=== PATIENT | male | born 1970 | race African-American/Black ===

== ENCOUNTER → 2016-05-06 | Emergency (ER) | payer OTHER ==
[~2016-05-06] VITALS: Ht 152.4 cm; Wt 85.5 kg
[~2016-05-06] MED LIST: DIAZEPAM 5 MG TAB PO ONE; HYDR-902 PO; HYDROCODONE/APAP (5/325) TAB PO ONE; MECL12.574 PO; MED4DP PO; ORPH100T PO; TRAM50TA2 PO
[2016-05-06 16:52] VITALS: Ht 152.4 cm; Wt 85.5 kg
--- NOTE | 2016-05-06 19:00 | RADRPT ---
PROCEDURE: XR Cervical Spine. CLINICAL INDICATION: Neck pain TECHNIQUE: Three views of the cervical spine were performed. COMPARISON: None. FINDINGS: The vertebral bodies are normal in mineralization, architecture and alignment. No fracture or osseou s lesion is identified. No subluxation is demonstrated. There is moderate C5-6 and mild C4-5 and C 6-7 degenerative disk disease. This is associated with space narrowing, endplate sclerosis and spond ylosis. The uncinate joints are unremarkable. The facet joints are unremarkable. The soft tissues are normal. IMPRESSION: Moderate C5-6 and mild C4-5 and C6-7 degenerative disk disease. RPTAT: HGDB .Sebas Joel MD, Date Time Electronically viewed and signed by .Sebas Joel MD, on 05/06/2016 18:59 .B/
--- NOTE | 2016-05-06 19:02 | RADRPT ---
PROCEDURE: CR right shoulder CLINICAL INDICATION: Shoulder pain TECHNIQUE: 3 views performed COMPARISON: No comparison available. FINDINGS: There is normal mineralization, architecture and alignment.No fracture or osseous lesion is identifi ed.The glenohumeral and acromioclavicular joints are unremarkable. The soft tissues are unremarkable . IMPRESSION: Unremarkable examination. RPTAT: HGDB .Sebas Joel MD, MD Date Time Electronically viewed and signed by .Sebas Joel MD, MD on 05/06/2016 19:02 .B/
--- NOTE | 2016-05-06 19:12 | ERD ---
ER Documentation Chief Complaint Date/Time DATE: 05/06/16 TIME: 19:09 Chief Complaint NECK X 1 WEEK HPI This is a 46-year-old male presents to the ER with back pain for the last week. Patient states that neck pain is sharp in nature it radiates down the right side of his neck and into the shoulder. Patient however has full range of motion of his shoulders. He does not have any fevers or chills. He does not have any trauma. Patient to exercise a lot in the past and has hurt himself exercising patient has been trying Flexeril and Advil however it has not worked. He denies any numbness or tingling to his upper extremities. He denies any weakness. He denies any headaches. ROS 12 point review of systems was done, all negative except per HPI. Medications Home Meds Active Scripts Orphenadrine Citrate (Norflex) 100 Mg Tablet.sa, 100 MG PO BID for 5 Days, TAB.SA Prov:NESSBEATRIZ KEITH C 05/06/16 Methylprednisolone* (Medrol* DOSE PACK) 4 Mg/Dose-Pack Tab.ds.pk, 4 MG PO . DIRECTED for 6 Days, PACKET Prov:BEATRIZ ARZOLA C 05/06/16 Tramadol HCl (Tramadol HCl) 50 Mg Tablet, 50 MG PO Q4 Y for PAIN, #20 TAB Prov:NESSBEATRIZ C 05/06/16 Hydrocodone/Acetaminophen ([place] 10-325 Tablet) 1 Each Tablet, 1 TAB PO Q6H Y for PAIN, #20 TAB Prov:LEKKOS,APOSTOLOS A. DO 12/28/15 Meclizine Hcl* (Antivert*) 12.5 Mg Tab, 25 MG PO Q6H Y for DIZZINESS, #20 TAB Prov:LEKKOS,APOSTOLOS A. DO 12/28/15 Allergies Allergies: Coded Allergies: No Known Allergy (Unverified , 12/28/15) PMhx/Soc History of Surgery: Yes (L hand surgery) Anesthesia Reaction: No Hx Neurological Disorder: Yes (Migraine MCLEAN) Hx Respiratory Disorders: No Hx Cardiac Disorders: No Hx Psychiatric Problems: No Hx Miscellaneous Medical Probl: Yes (Possible muscle tear in L chest.) Hx Alcohol Use: No Hx Substance Use: No Hx Tobacco Use: No Physical Exam Vitals Vital Signs Date Time Temp Pulse Resp B/P Pulse Ox O2 Delivery O2 Flow Rate FiO2 05/06/16 16:52 98.1 78 18 127/61 98 Physical Exam GENERAL: The patient is well developed and appropriate for usual state of health , in no apparent distress. HEENT: Atraumatic. Conjunctivae are pink. Pupils equal, round, and reactive to light. Extraocular muscles are grossly intact. Bilateral tympanic membranes are clear with no evidence of erythema, bulging or perforation. No sinus tenderness. NECK: C-spine is soft and supple. There is no cervical lymphadenopathy. Patient is tender to palpation along C4 through C7. Tenths trapezius muscles. CHEST: Clear to auscultation bilaterally. There are no rales, wheezes or rhonchi. HEART: Regular rate and rhythm. No murmurs, clicks, rubs or gallops. NEURO: Alert and oriented. SKIN: There is no apparent rash or petechia. The skin is warm and dry. Results 24 hrs Current Medications Medications (Trade) Dose Ordered Sig/Oniel Route PRN Reason Start Time Stop Time Status Last Admin Dose Admin Diazepam (Valium) 5 mg ONCE ONCE PO 05/06/16 18:00 05/06/16 18:01 DC 05/06/16 17:47 Procedures/MDM This is a 46-year-old male presents to the ER with neck pain for the last week. Patient did have degenerative disc disease from C4 through C7. At this time I do not believe patient has meningitis as he does not have any neck stiffness fever or chills. I doubt abscess as he is afebrile. Patient will be sent home with tramadol, Norflex, prednisone. He is to follow-up with his primary care doctor within 1-2 days or return to ER sooner if symptoms worsen. I advised that he follow-up with an orthopedic doctor. Medical decision making shared with the patient understands and agrees with plan Departure Diagnosis: Primary Impression: Degenerative disc disease Condition: Stable Patient Instructions: Back And Neck Pain, General Additional Instructions: Call your primary care doctor TOMORROW for an appointment during the next 1-2 days.See the doctor sooner or return here if your condition worsens before your appointment time. BEATRIZ ARZOLA May 06, 2016 19:12
[2016-05-06 19:20] VITALS: BP 149/70; PULSE 70; RESP 18; TEMP 98.2
== END | disposition home or self-care (01) ==
LOC: FTE 16:51
DX: M50.90 Cervical disc disorder, unspecified, unspecified cervical region (principal)
CPT/HCPCS: 72040; 73030; Z7502; Z7610

== ENCOUNTER 2016-07-15 19:39 | Emergency (ER) | payer OTHER ==
[~2016-07-15] VITALS: Ht 185.4 cm; Wt 88.5 kg
[~2016-07-15 19:39] MED LIST changes: -DIAZEPAM 5 MG TAB PO ONE; -HYDROCODONE/APAP (5/325) TAB PO ONE
[2016-07-15 20:26] VITALS: Ht 185.4 cm; Wt 88.5 kg
[2016-07-15] MEDS ORDERED: ACET1TAB40 PO (21:36)
[2016-07-15] MEDS ORDERED: AMO500 PO (21:36)
--- NOTE | 2016-07-15 21:48 | ERD ---
ER Documentation Chief Complaint Date/Time DATE: 07/15/16 TIME: 21:44 Chief Complaint RIGHT SIDED TOOTHACHE UNRELIEVED WITH PAIN MEDICATION HPI This is a 46-year-old male presenting to the emergency department complaining of right lower tooth pain for the past day. Patient rates the pain 10 out of 10 , described as constant achy denies any radiation. He denies any fevers. Patient states that the pain is located where that he has a missing tooth. Patient states that he took tramadol and ibuprofen without any relief. ROS All systems reviewed and are negative except as per history of present illness. Medications Home Meds Active Scripts Acetaminophen with Codeine (Acetaminophen-Cod #3 Tablet) 1 Each Tablet, 1 TAB PO Q6H Y for PAIN, #20 TAB Prov:SHARYN DOMINGO-C 07/15/16 Amoxicillin* (Amoxicillin*) 500 Mg Cap, 500 MG PO BID for 10 Days, CAP Prov:SHARYN DOMINGO-C 07/15/16 Orphenadrine Citrate (Norflex) 100 Mg Tablet.sa, 100 MG PO BID for 5 Days, TAB.SA Prov:NESS,BEATRIZ C 05/06/16 Methylprednisolone* (Medrol* DOSE PACK) 4 Mg/Dose-Pack Tab.ds.pk, 4 MG PO . DIRECTED for 6 Days, PACKET Prov:NESSLARRYBEATRIZ C 05/06/16 Tramadol HCl (Tramadol HCl) 50 Mg Tablet, 50 MG PO Q4 Y for PAIN, #20 TAB Prov:NESSBEATRIZ C 05/06/16 Hydrocodone/Acetaminophen ([place] 10-325 Tablet) 1 Each Tablet, 1 TAB PO Q6H Y for PAIN, #20 TAB Prov:LEKKOS,APOSTOLOS A. DO 12/28/15 Meclizine Hcl* (Antivert*) 12.5 Mg Tab, 25 MG PO Q6H Y for DIZZINESS, #20 TAB Prov:LEKKOS,APOSTOLOS A. DO 12/28/15 Allergies Allergies: Coded Allergies: No Known Allergy (Unverified , 12/28/15) PMhx/Soc History of Surgery: Yes (L hand surgery) Anesthesia Reaction: No Hx Neurological Disorder: Yes (Migraine MCLEAN) Hx Respiratory Disorders: No Hx Cardiac Disorders: No Hx Psychiatric Problems: No Hx Miscellaneous Medical Probl: Yes (Possible muscle tear in L chest.) Hx Alcohol Use: No Hx Substance Use: No Hx Tobacco Use: No Smoking Status: Never smoker Physical Exam Vitals Vital Signs Date Time Temp Pulse Resp B/P Pulse Ox O2 Delivery O2 Flow Rate FiO2 07/15/16 20:26 97.9 87 17 138/67 99 Physical Exam GENERAL: WD/WN, in no apparent distress, non-toxic appearing HENT: NC/AT. No swelling noted in the face, patient was tender to palpation in the right lower gum region, patient has a missing tooth in right lower region EYES: Conjunctiva normal NECK: Supple. No meningeal signs PULM: Clear to auscultation bilaterally. Normal labored breathing CV: Regular rate and rhythm, no murmurs GI: Soft, non tender, non distended. Normal bowel sounds BACK: No masses EXT: No clubbing, cyanosis, or edema. NEURO: Awake and Alert SKIN: No petechiae or rashes PSYCH: Normal mood Procedures/MDM This is a 46-year-old male presenting to the emergency department complaining of right lower dental pain my differentials include but not limited to dental infection, dental caries, versus other. Patient did not have any evidence of dental abscess or facial cellulitis. Patient has stable vital signs, he is afebrile. Patient will be empirically treated for a dental infection amoxicillin and I discussed with him to follow-up with his dentist tomorrow for further evaluation management. Patient stable for discharge for home. Discussed to return to the ER for any worsening symptoms. He understands and agrees with plan Prescriptions given: amoxicillin and tylenol no. 3 Departure Diagnosis: Primary Impression: Pain, dental Condition: Stable Patient Instructions: Dental Pain Referrals: [facility] ([facility]) Additional Instructions: FOLLOW UP WITH YOUR PRIMARY CARE PHYSICIAN TOMORROW.Return to this facility if you are not improving as expected. Take all medicines as directed. Return to this facility if you are not improving as expected. You have been given a medicine which may cause drowsiness.DO NOT DRIVE OR OPERATE DANGEROUS MACHINERY while taking this medicine! SHARYN DOMINGO PA-C Jul 15, 2016 21:48
== END 2016-07-15 21:51 | disposition home or self-care (01) ==
LOC: FTE 19:39
DX: K08.89 Other specified disorders of teeth and supporting structures (principal)
CPT/HCPCS: 99283

== ENCOUNTER 2017-05-18 09:20 | Emergency (ER) | END 2017-05-18 12:04 | disposition home or self-care (01) ==

== ENCOUNTER 2018-03-04 02:50 | Emergency (ER) | payer OTHER ==
[~2018-03-04] VITALS: Wt 82.3 kg
[~2018-03-04 02:50] MED LIST changes: -HYDR-902 PO; +IBUP-1542 PO; -MECL12.574 PO; -MED4DP PO; -ORPH100T PO; -TRAM50TA2 PO
[2018-03-04] MEDS ORDERED: morphine 4 MG/ML VIAL IV STA (03:07)
[2018-03-04] MEDS ORDERED: SOD CHLORIDE 0.9% 1,000 ML IV STA (03:07)
[2018-03-04] MEDS ORDERED: ONDANSETRON 4 MG INJ IV STA (03:07)
[2018-03-04 04:43] VITALS: BP 113/59; PULSE 80; RESP 16
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
[2018-03-04] MEDS ORDERED: IBUP800T48 PO (04:48)
[2018-03-04] MEDS ORDERED: HYDR-4011 PO (04:48)
== END 2018-03-04 04:59 | disposition home or self-care (01) ==
LOC: E/R 02:50
DX: S20.211A Contusion of right front wall of thorax, initial encounter (principal); M50.320 Other cervical disc degeneration, mid-cervical region, unspecified level; Y04.8XXA Assault by other bodily force, initial encounter
CPT/HCPCS: 70450; 71100; 72125; 73140; 96374; 96375; J2270; J2405; J7030; Z7502